=== PATIENT | female | born 1985 | race Caucasian/White ===

== ENCOUNTER 2017-03-29 01:36 | Emergency (ER) | payer SELFPAY ==
[2017-03-29] MEDS ORDERED: ACETAMINOPHEN 325 MG TAB ONE (02:17)
== END 2017-03-29 03:21 | disposition home or self-care (01) ==
LOC: EDH 01:36
DX: K11.20 Sialoadenitis, unspecified (principal); Z90.49 Acquired absence of other specified parts of digestive tract
CPT/HCPCS: 81025

== ENCOUNTER 2017-05-25 17:57 | Emergency (ER) | payer SELFPAY ==
[2017-05-25] MEDS ORDERED: KETOROLAC TROMETHAMINE 60 MG/2 ML VIAL ONE (18:35)
[2017-05-25] MEDS ORDERED: AMOXICILLIN/POTASSIUM CLAV 875-125 TABLET PO ONE (18:35)
== END 2017-05-25 18:42 | disposition home or self-care (01) ==
LOC: EDH 17:57
DX: K04.7 Periapical abscess without sinus (principal); J03.90 Acute tonsillitis, unspecified
CPT/HCPCS: 81025; 96372; 99283; J1885

== ENCOUNTER 2018-09-03 19:28 | Emergency (ER) | payer MEDICAID ==
[2018-09-03] MEDS ORDERED: KETOROLAC TROMETHAMINE 30MG/ML ONE (19:59)
[2018-09-03] MEDS ORDERED: ONDANSETRON HCL 4 MG/2 ML VIAL ONE (19:59)
[2018-09-03] MEDS ORDERED: SODIUM CHLORIDE 0.9% 1000ML 1,000 ML IV ONE (19:59)
[2018-09-03 20:02] LABS: BASOPHILS % (AUTO) 0.6 % (0.0-5.0); EOSINOPHILS % (AUTO) 0.9 % (0.0-8.0); HEMATOCRIT 36.7 % (36-48); LYMPHOCYTES % (AUTO) 23.9 % (21.0-51.0); MEAN CORPUSCULAR HEMOGLOBIN 31.1 pg (27.0-33.0); MEAN CORPUSCULAR HGB CONC 33.7 g/dL (32.0-36.0); MEAN CORPUSCULAR VOLUME 92.3 fL (79-99); MONOCYTES % (AUTO) 6.6 % (3.0-13.0); NUCLEATED RED BLOOD CELLS 0.1 % (0.0-0.19); PLATELET COUNT (AUTO) 266 K/uL (130-400); RED BLOOD CELL COUNT(AUTO) 3.98 MIL/uL (4.00-5.50); WHITE BLOOD COUNT (AUTO) 10.5 K/uL (4.8-10.8)
[2018-09-03 20:04] LABS: APPEARANCE,URINE Cloudy (CLEAR); BILIRUBIN,URINE Negative (NEGATIVE); COLOR,URINE Yellow (YELLOW); GLUCOSE, URINE (UA) Negative (NEGATIVE); KETONES,URINE Negative (NEGATIVE); LEUKOCYTE ESTERASE ,URINE Small (NEGATIVE); NITRATE,URINE Negative (NEGATIVE); OCCULT BLOOD,URINE Negative (NEGATIVE); PROTEIN,URINE Negative (NEGATIVE)
[2018-09-03 20:14] LABS: CREATININE 0.7 mg/dL (0.5-1.5); POTASSIUM 3.4 mmol/L (3.5-5.1)
[2018-09-03 20:20] LABS: ALBUMIN 3.5 g/dL (3.5-5.0); BILIRUBIN,TOTAL 0.2 mg/dL (0.2-1.0); TOTAL PROTEIN, SERUM 7.5 g/dL (6.0-8.3)
[2018-09-03] MEDS ORDERED: IOHEXOL-350 75 ML VIAL IV ONE (20:35)
[2018-09-03 20:37] LABS: HCG,QUAL RESULT NEGATIVE (NEGATIVE)
[2018-09-03 20:39] LABS: BACTERIA,URINE Rare /HPF (None Seen); RBC,URINE 0-1 /HPF (0-1)
== END 2018-09-03 22:30 | disposition home or self-care (01) ==
LOC: EDH 19:28
DX: R10.31 Right lower quadrant pain (principal); R11.0 Nausea; Z90.49 Acquired absence of other specified parts of digestive tract; Z98.890 Other specified postprocedural states
CPT/HCPCS: 36415; 74177; 80053; 81001; 81025; 83690; 85025; 87088; 96374; 96375; 99285; J1885; J2405; J7030; Q9967

== ENCOUNTER 2021-11-13 14:44 | Emergency (ER) | payer MEDICAID ==
[~2021-11-13] VITALS: Ht 149.9 cm; Wt 78.9 kg
[2021-11-13] MEDS ORDERED: IOHEXOL 350 MG/ML 100ML INFUS..BTL IV ONE (15:21)
[2021-11-13] MEDS ORDERED: 0.9%NACL 1000ML 1,000 ML IV ONE (15:30)
[2021-11-13 15:49] LABS: BASOPHILS % (AUTO) 0.3 % (0.0-5.0); HEMATOCRIT 40.2 % (36-48); LYMPHOCYTES % (AUTO) 9.5 % (21.0-51.0); MEAN CORPUSCULAR HEMOGLOBIN 30.6 pg (27.0-33.0); MEAN CORPUSCULAR HGB CONC 33.1 g/dL (32.0-36.0); MEAN CORPUSCULAR VOLUME 92.4 fL (79-99); MONOCYTES % (AUTO) 4.1 % (3.0-13.0); NEUTROPHILS % (AUTO) 84.7 % (40.0-77.0); PLATELET COUNT (AUTO) 230 K/uL (130-400); RED BLOOD CELL COUNT(AUTO) 4.35 MIL/uL (4.00-5.50); RED CELL DISTRIBUTION WIDTH 12.5 % (11.0-15.5); WHITE BLOOD COUNT (AUTO) 7.3 K/uL (4.8-10.8)
[2021-11-13 15:55] LABS: APPEARANCE,URINE CLOUDY (CLEAR); BILIRUBIN,URINE NEGATIVE (NEGATIVE); COLOR,URINE LIGHT-YELLOW (YELLOW); GLUCOSE, URINE (UA) NEGATIVE (NEGATIVE); KETONES,URINE NEGATIVE (NEGATIVE); LEUKOCYTE ESTERASE ,URINE 25 Leu/uL (NEGATIVE); NITRATE,URINE NEGATIVE (NEGATIVE); OCCULT BLOOD,URINE MODERATE (NEGATIVE); PROTEIN,URINE NEGATIVE (NEGATIVE); UROBILINOGEN,URINE 0.2 mg/dL (0.2-1.0)
[2021-11-13 15:59] LABS: CREATININE 0.7 mg/dL (0.5-1.5); POTASSIUM 3.6 mmol/L (3.5-5.1)
[2021-11-13 16:01] LABS: BACTERIA,URINE RARE /HPF (None Seen); MUCUS,URINE RARE LPF (None Seen); SQUAMOUS EPITHELIAL CELL,UR MOD /HPF (0-2)
[2021-11-13 16:23] LABS: ALBUMIN 3.7 g/dL (3.5-5.0)
[2021-11-13 17:10] VITALS: BP 134/85
[2021-11-13] MEDS ORDERED: DICY20TA2 PO (17:18)
== END 2021-11-13 17:32 | disposition home or self-care (01) ==
LOC: EDH 14:44
DX: R10.31 Right lower quadrant pain (principal)
CPT/HCPCS: 99285; 74177; 80053; 84702; 85025; 81001; 36415; Q9967

== ENCOUNTER 2022-04-11 21:18 | Emergency (ER) | payer MEDICAID ==
[~2022-04-11] VITALS: Ht 149.9 cm; Wt 85.3 kg
[~2022-04-11 21:18] MED LIST: DICY20TA2 PO
[2022-04-11 21:43] VITALS: BP 143/87
[2022-04-11] MEDS ORDERED: IBUPROFEN 600 MG TABLET PO ONE (22:30)
[2022-04-11] MEDS ORDERED: IBUPROFEN 200 MG TAB ONE (22:32)
[2022-04-11] MEDS ORDERED: IBUP-2070 PO (22:41)
== END 2022-04-11 22:50 | disposition home or self-care (01) ==
LOC: EDH 21:18
DX: J06.9 Acute upper respiratory infection, unspecified (principal); Z20.822 Contact with and (suspected) exposure to COVID-19; Z90.49 Acquired absence of other specified parts of digestive tract
CPT/HCPCS: 99283; 87635; 87880; 87804 ×2; C9803